=== PATIENT | female | born 1940 | race Hispanic/Latino ===

== ENCOUNTER → 2025-01-28 | Outpatient (REF) | payer MEDICARE ==
[~2025-01-28] MED LIST: LISINOPRIL5 MG PO; SIMVASTATIN20 MG PO
== END ==
LOC: RAD 10:47
PROVIDERS: ATTEND Student in an Organized Health Care Education/Training Program
DX: M54.50 Low back pain, unspecified (principal); M79.641 Pain in right hand; M79.642 Pain in left hand; M25.562 Pain in left knee; M25.561 Pain in right knee; M81.0 Age-related osteoporosis without current pathological fracture; M19.90 Unspecified osteoarthritis, unspecified site; Z22.7 Latent tuberculosis; D89.89 Other specified disorders involving the immune mechanism, not elsewhere classified
CPT/HCPCS: 72110; 72202

== ENCOUNTER → 2025-02-09 | Outpatient (REF) | payer MEDICARE | LOC: RAD 11:23 | PROVIDERS: ATTEND Student in an Organized Health Care Education/Training Program | DX: Z22.7 Latent tuberculosis (principal) | CPT/HCPCS: 71046 ==